=== PATIENT | female | born 1975 | race African-American/Black ===

== ENCOUNTER 2018-02-17 11:02 | Emergency (ER) | payer SELFPAY ==
--- NOTE | 2018-02-17 11:19 | EDPHYS ---
Physician Documentation [facility] Name: Caron Head Age: 42 yrs Sex: Female : 1975 Arrival Date: 02/17/2018 Time: 11:10 Bed 6 Private MD: ED Physician Marlon Main HPI: 02/17 11:12 This 42 yrs old Black Female presents to ER via Unassigned with complaints of jr8 schizophrenia . 11:12 The patient presents to the emergency department with paranoia, psychosis, has jr8 experienced auditory hallucinations, has experienced visual hallucinations, has delusions. Onset: The symptoms/episode began/occurred acutely, today. Associated signs and symptoms: The patient has no apparent associated signs or symptoms. Severity of symptoms: At their worst the symptoms were moderate in the emergency department the symptoms are unchanged. It is unknown whether or not the patient has had similar symptoms in the past. It is unknown whether or not the patient has recently seen a physician. Patient brought in by for clearance to bring to [facility] for psychiatric evaluation. Patient with history of schizophrenia with multiple personality disorder. Has been seeing and hearing various people . 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 - Social history:: Smoking status: unknown. - Ebola Screening: : No symptoms or risks identified at this time. ROS: 11:12 Eyes: Negative for injury, pain, redness, and discharge, ENT: Negative for injury, jr8 pain, and discharge, Neck: Negative for injury, pain, and swelling, Cardiovascular: Negative for chest pain, palpitations, and edema, Respiratory: Negative for shortness of breath, cough, wheezing, and pleuritic chest pain, Abdomen/GI: Negative for abdominal pain, nausea, vomiting, diarrhea, and constipation, Back: Negative for injury and pain, MS/Extremity: Negative for injury and deformity, Skin: Negative for injury, rash, and discoloration, Neuro: Negative for headache, weakness, numbness, tingling, and seizure. 11:12 Psych: Positive for auditory hallucinations, visual hallucinations. Exam: 11:12 Eyes: Pupils equal round and reactive to light, extra-ocular motions intact. Lids and jr8 lashes normal. Conjunctiva and sclera are non-icteric and not injected. Cornea within normal limits. Periorbital areas with no swelling, redness, or edema. ENT: Nares patent. No nasal discharge, no septal abnormalities noted. Tympanic membranes are normal and external auditory canals are clear. Oropharynx with no redness, swelling, or masses, exudates, or evidence of obstruction, uvula midline. Mucous membranes moist. Neck: Trachea midline, no thyromegaly or masses palpated, and no cervical lymphadenopathy. Supple, full range of motion without nuchal rigidity, or vertebral point tenderness. No Meningismus. Cardiovascular: Regular rate and rhythm with a normal S1 and S2. No gallops, murmurs, or rubs. Normal PMI, no JVD. No pulse deficits. Respiratory: Lungs have equal breath sounds bilaterally, clear to auscultation and percussion. No rales, rhonchi or wheezes noted. No increased work of breathing, no retractions or nasal flaring. Abdomen/GI: Soft, non-tender, with normal bowel sounds. No distension or tympany. No guarding or rebound. No evidence of tenderness throughout. Back: No spinal tenderness. No costovertebral tenderness. Full range of motion. Skin: Warm, dry with normal turgor. Normal color with no rashes, no lesions, and no evidence of cellulitis. MS/ Extremity: Pulses equal, no cyanosis. Neurovascular intact. Full, normal range of motion. Neuro: Awake and alert, GCS 15, oriented to person, place, time, and situation. Cranial nerves II-XII grossly intact. Motor strength 5/5 in all extremities. Sensory grossly intact. Cerebellar exam normal. Normal gait. 11:12 Psych: Behavior/mood is cooperative, suicidal, Affect is calm, Oriented to person, place, time, Patient having thoughts of suicide. Denies suicidal plan. Judgement / Insight is impaired. Memory is normal. Delusions/hallucinations are present and described as seeing and hearing people that want to jump her and kill her. Stated that it would be better to kill herself then listen to that . Vital Signs: 11:21 BP 116 / 99; Pulse 78; Resp 18; Temp 97.8; Pulse Ox 99% on R/A; Weight 68.04 kg; Height ph 5 ft. 4 in. (162.56 cm); 11:21 Body Mass Index 25.75 (68.04 kg, 162.56 cm) ph MDM: 11:11 Patient medically screened. jr8 11:12 Data reviewed: vital signs, nurses notes, and as a result, I will discharge patient. jr8 Data interpreted: Pulse oximetry: on room air is 100 %. Interpretation: normal. Counseling: I had a detailed discussion with the patient and/or guardian regarding: the historical points, exam findings, and any diagnostic results supporting the discharge/admit diagnosis, the need for outpatient follow up, a family practitioner, a psychiatrist, to return to the emergency department if symptoms worsen or persist or if there are any questions or concerns that arise at home. ED course: Patient with psychotic thoughts and hallucinations. Acute schizophrenic episode present. Patient otherwise alert to person, place, time, event. Medically no acute findings on vitals or physical exam. Cleared to go to [facility] via police for further evaluation . Administered Medications: No medications were administered Disposition: 02/18 10:27 Co-signature as Attending Physician, Marlon Main MD. Disposition: 02/17/18 11:18 Discharged to Law Enforcement. Impression: Schizoid personality disorder, Schizophrenia. - Condition is Stable. - Discharge Instructions: Schizophrenia. - Medication Reconciliation Form, Thank You Letter, Antibiotic Education, Prescription Opioid Use form. - Follow up: Private Physician; When: Today; Reason: Recheck today's complaints, Continuance of care, Re-evaluation by your physician. - Problem is new. - Symptoms have improved. - Notes: Patient has been medically evaluated and cleared for [facility]. No acute medical finding. Signatures: Jorge Mckinney PA PA jr8 Susana Bee RN RN ph Starr, Gregory, MD MD Corrections: (The following items were deleted from the chart) 02/17 11:32 11:18 02/17/2018 11:18 Discharged to Law Enforcement. Impression: Schizoid personality ph disorder; Schizophrenia. Condition is Stable. Forms are Medication Reconciliation Form, Thank You Letter, Antibiotic Education, Prescription Opioid Use. Follow up: Private Physician; When: Today; Reason: Recheck today's complaints, Continuance of care, Re-evaluation by your physician. Problem is new. Symptoms have improved. jr8
--- NOTE | 2018-02-17 11:33 | ER ---
Nurse's Notes [facility] Name: Caron Head Age: 42 yrs Sex: Female : 1975 Arrival Date: 02/17/2018 Time: 11:10 Bed 6 Private MD: Diagnosis: Schizoid personality disorder;Schizophrenia Presentation: 02/17 11:12 Presenting complaint: Patient states: " I was arrested this morning because I was ph walking to the and a army helicopter pilot stopped me and said I was drunk because I was slurring but it was from my medicine (doxepin) They were laughing at me at the shelter and people were trying to jump on me and the employee communications intern there didn't care and I said I would rather than be treated like that." Pt reports hx of schizophrenia w/ psychotic features and multiple personalty disorder, states that she recently moved here and is out of most of her medications ( Depakote, Seroquel, Klonopin). Transition of care: patient was not received from another setting of care. Onset of symptoms was February 17, 2018. Risk Assessment: Do you want to hurt yourself or someone else? Other: Pt denies suicidal or homicidal plans, however pt did state, " I would rather than be treated like that." when referring to being in shelter. Initial Sepsis Screen: Does the patient meet any 2 criteria? No. Patient's initial sepsis screen is negative. Does the patient have a suspected source of infection? No. Patient's initial sepsis screen is negative. Care prior to arrival: None. 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 - Social history:: Smoking status: unknown. - Ebola Screening: : No symptoms or risks identified at this time. Screenin:23 Abuse screen: Denies threats or abuse. Denies injuries from another. Nutritional ph screening: No deficits noted. Tuberculosis screening: No symptoms or risk factors identified. Fall Risk None identified. Assessment: 11:24 General: Appears in no apparent distress. Behavior is cooperative, agitated, anxious. ph Pain: Complains of pain in chest, pt states, "My chest feels tight and I feel anxious, I've been out of my anxiety medicine.". Neuro: Level of Consciousness is awake, alert, obeys commands, Oriented to person, place, time, situation. Cardiovascular: Capillary refill < 3 seconds in bilateral fingers Patient's skin is warm and dry. Respiratory: Airway is patent Respiratory effort is even, unlabored, Respiratory pattern is regular, symmetrical. GI: No signs and/or symptoms were reported involving the gastrointestinal system. Derm: Skin is intact, is healthy with good turgor, Skin is pink, warm \\T\\ dry. Musculoskeletal: Circulation, motion, and sensation intact. Range of motion: intact in all extremities. 11:28 Reassessment: Pt medically cleared by ERP and d/c w/ Rafael AKBAR. ph Psych: 11:29 Subjective: Patient's mood is angry, irritable, Delusions are persecutory, ph Hallucinations are auditory, visual. Objective: Patient is defensive, Speech is loud, rambling, rapid, Affect is appropriate. Vital Signs: 11:21 BP 116 / 99; Pulse 78; Resp 18; Temp 97.8; Pulse Ox 99% on R/A; Weight 68.04 kg; Height ph 5 ft. 4 in. (162.56 cm); 11:21 Body Mass Index 25.75 (68.04 kg, 162.56 cm) ph ED Course: 11:10 Patient arrived in ED. jr8 11:11 Jorge Mckinney PA is PHCP. jr8 11:11 Marlon Main MD is Attending Physician. jr8 11:12 Susana Bee, LUIS is Primary Nurse. ph 11:19 Triage completed. ph 11:23 Arm band placed on. ph 11:24 Patient has correct armband on for positive identification. Bed in low position. Call ph light in reach. Side rails up X 1. Pulse ox on. NIBP on. Warm blanket given. 11:27 No provider procedures requiring assistance completed. Patient did not have IV access ph during this emergency room visit. Administered Medications: No medications were administered Outcome: 11:18 Discharge ordered by MD. medley 11:31 Discharged to Law Enforcement ph 11:31 Condition: good 11:31 Discharge instructions given to patient, Instructed on discharge instructions, follow up and referral plans. 11:32 Patient left the ED. ph Signatures: Jorge Mckinney PA PA jr8 Susana Bee, RN RN ph
== END 2018-02-17 11:32 ==
LOC: ER 11:02
DX: F60.1 Schizoid personality disorder (principal); F20.9 Schizophrenia, unspecified
CPT/HCPCS: 99284